=== PATIENT | male | born 1960 | race Caucasian/White ===

== ENCOUNTER 2020-07-31 14:43 | Emergency (ER) | payer OTHER ==
[2020-07-31] MEDS ORDERED: cefTRIAXone 2 GM in Sodium Chloride 0.9% 100 ML IV ONE (15:13)
[2020-07-31] MEDS ORDERED: Sodium Chloride 0.9% 10 ML Syringe FLUSH PRN (15:13)
[2020-07-31] MEDS ORDERED: Diphtheria,Pertussis(Acell),Tetanus Vaccine 0.5 ML Syringe IM ONE (15:14)
[2020-07-31] MEDS ORDERED: Ondansetron 4 MG/2 ML SDV IVPUSH ONE (15:14)
--- NOTE | 2020-07-31 15:20 | EDM.PDOC ---
ED HPI GENERAL MEDICAL PROBLEM - General Chief Complaint: Upper Extremity Injury/Pain Stated Complaint: HAND AND FINGER INJURY SHOWING INFECTION Time Seen by Provider: 07/31/20 14:57 Source of Information: Reports: Patient, RN Notes Reviewed History Limitations: Reports: No Limitations - History of Present Illness INITIAL COMMENTS - FREE TEXT/NARRATIVE: Patient is a 59-year-old male who presents to the ED for evaluation of a right hand injury. The patient was at work yesterday, at around 11 AM, when he was pulling wire at work, when his hand slipped and his right hand ended up getting punctured by some ground wire. He states that he felt an electric shock type pain initially at the site of the wound, and he pulled out the wire, and he had another shock type pain after this. He is noting some numbness and tingling to his index finger on his right hand, mostly on the radial side. He notes he has some sensation to the ulnar side of his index finger. There is associated redness and swelling, almost to the surface of the second MCP of the right hand. The erythema seems to extend down the patient's hand by his thumb, about 1 inch past his wrist joint, and then seems to stop. The puncture wound is in the web spacing between the first and second digits. He went to occupational health as this was a work-related injury, and they sent him here for x-rays and further evaluation and possible IV antibiotics. He notes that there is increased pain, swelling, and loss of range of movement due to the swelling. Patient denies any other sick-like symptoms, fever/chills, cough/shortness of breath, nausea/vomiting/diarrhea. Treatments CART PUSHER: Reports: Other (see below) Other Treatments CART PUSHER: none Right Finger-Index Pain Score (Numeric/FACES): 10 - Related Data Allergies Allergy/AdvReac Type Severity Reaction Status Date / Time amoxicillin AdvReac Mild Nausea Verified 07/31/20 15:59 Home Meds: Home Meds Cefdinir [Omnicef] 300 mg PO BID 7 Days #14 cap 07/31/20 [Rx] Hydrocodone/Acetaminophen [Hydrocodon-Acetaminophen 5-325] 1 each PO Q6H PRN #12 tablet 07/31/20 [Rx] Past Medical History - Past Health History Medical/Surgical History: Denies Medical/Surgical History - Past Surgical History GI Surgical History: Reports: Appendectomy Social & Family History - Tobacco Use Tobacco Use Status *Q: Never Tobacco User - Caffeine Use Caffeine Use: Reports: Coffee - Recreational Drug Use Recreational Drug Use: No Review of Systems - Review of Systems Review Of Systems: Comprehensive ROS is negative, except as noted in HPI. ED EXAM, GENERAL - Physical Exam Exam: See Below Exam Limited By: No Limitations General Appearance: Alert, WD/WN, No Apparent Distress Respiratory/Chest: No Respiratory Distress, Lungs Clear, Normal Breath Sounds, No Accessory Muscle Use, Chest Non-Tender Cardiovascular: Normal Peripheral Pulses, Regular Rate, Rhythm, No Murmur Peripheral Pulses: 2+: Radial (L), Radial (R) Extremities: Normal Capillary Refill, Limited Range of Motion (of 1st and 2nd digits d/t swelling in web spacing.), Increased Warmth, Redness Neurological: Alert, Oriented, Normal Cognition, Sensory/Motor Deficit (there seems to be some loss of sensory perception on the radial aspect of the patient's 2nd digit) Psychiatric: Normal Affect, Normal Mood Skin Exam: Warm, Dry, Erythema (to right hand dorsum, extends 1 inch past wrist and to 2nd MCP at this time.), Increased Warmth (over the area of concern), Wound/Incision (puncture wound to webspacing to right hand on dorsum of hand) Course - Vital Signs Last Recorded V/S: Last Vital Signs Temp 99.3 F 07/31/20 15:04 Pulse 86 07/31/20 15:04 Resp 20 07/31/20 15:04 BP 130/92 H 07/31/20 15:04 Pulse Ox 95 07/31/20 15:04 - Orders/Labs/Meds Orders: Active Orders 24 hr Category Date Time Status Peripheral IV Care [RC] . DIRECTED Care 07/31/20 15:14 Ordered Vaccines to be Administered [RC] PER UNIT ROUTINE Care 07/31/20 15:14 Ordered Hand Comp Min 3V Rt [CR] Stat Exams 07/31/20 15:12 Ordered Sodium Chloride 0.9% [Saline Flush] Med 07/31/20 15:13 Ordered 10 ml FLUSH ASDIRECTED PRN Peripheral IV Insertion Adult [OM.PC] Routine Oth 07/31/20 15:13 Ordered Medication Orders Sodium Chloride (Saline Flush) 10 ml FLUSH ASDIRECTED PRN PRN Reason: Keep Vein Open Meds: Medications Generic Name Dose Route Start Last Admin Trade Name Freq PRN Reason Stop Dose Admin Sodium Chloride 10 ml 07/31/20 15:13 Saline Flush FLUSH ASDIRECTED PRN Keep Vein Open Discontinued Medications Generic Name Dose Route Start Last Admin Trade Name Freq PRN Reason Stop Dose Admin Ceftriaxone Sodium 2 gm/ 0 gm 07/31/20 15:52 Lidocaine HCl 4.2 ml IM 07/31/20 15:53 ONETIME ONE Diphtheria/Tetanus/Acell Pertussis 0.5 ml 07/31/20 15:14 07/31/20 16:04 Adacel IM 07/31/20 15:15 0.5 ml .ONCE ONE Administration Ceftriaxone Sodium 2 gm/ 100 mls @ 200 mls/hr 07/31/20 15:13 07/31/20 15:54 Sodium Chloride IV 07/31/20 15:42 Not Given ONETIME ONE Ondansetron HCl 4 mg 07/31/20 15:14 07/31/20 15:56 Zofran IVPUSH 07/31/20 15:15 Not Given ONETIME ONE Ondansetron HCl 4 mg 07/31/20 15:55 07/31/20 16:04 Zofran Odt PO 07/31/20 15:56 4 mg ONETIME ONE Administration - Re-Assessments/Exams Free Text/Narrative Re-Assessment/Exam: 07/31/20 15:20 Patient presents to the ED for evaluation of his hand injury. Have ordered x- rays, IV to be placed along with 2 g IV Rocephin for initial management. He will be updated on his tetanus at this time. 07/31/20 15:44 The patient's case was discussed with Dr. Vegas, orthopedic surgeon at [facility] in [place], he states that he does come out to [facility] on Monday, and to have the patient call [facility] and [facility] to schedule an appointment to see him on Monday. He is okay with getting Omnicef for coverage, and to give him something for pain management as well. Departure - Departure Time of Disposition: 15:48 Disposition: Home, Self-Care 01 Condition: Good Clinical Impression: Puncture wound of hand, right Qualifiers: Encounter type: initial encounter Foreign body presence: with foreign body Qualified Code(s): S61.441A - Puncture wound with foreign body of right hand, initial encounter - Discharge Information *PRESCRIPTION DRUG MONITORING PROGRAM REVIEWED*: No *COPY OF PRESCRIPTION DRUG MONITORING REPORT IN PATIENT RICKY: No Prescriptions: Hydrocodone/Acetaminophen [Hydrocodon-Acetaminophen 5-325] 1 each PO Q6H PRN #12 tablet PRN Reason: Pain Cefdinir [Omnicef] 300 mg PO BID 7 Days #14 cap Instructions: Puncture Wound, [id number] Referrals: Sheldon Pham MD [Primary Care Provider] - Forms: ED Department Discharge Additional Instructions: You have been evaluated in the ED for your right hand puncture wound. Your x-ray demonstrated did demonstrate some retained foreign bodies that will need to be removed. The foreign bodies do appear to look like the plastic wire coverings. Please use ice as tolerated to the affected area. You may elevate the affected area to provide further relief from swelling. You may take Tylenol 500 mg or ibuprofen 600mg q6 hrs for pain relief. Please do so until you have a tolerable level of pain with activity. Do not exceed 4000mg Tylenol, Do not exceed 3200mg ibuprofen in a 24 hour time period. You were given a prescription for a strong pain medication, hydrocodone/acetaminophen 5/325, please take 1 tab every 6 hours as needed for pain not relieved by Tylenol or ibuprofen alone. Please note this does contain Tylenol in it, so do not take more than 4000 mg in a 24-hour time span. These medications can be addictive, so please take as few as possible to achieve adequate pain control. These meds can also be quite constipating, recommend that you increase your oral fluid intake and take a stool softener like MiraLAX while taking these medications. You were scheduled with an orthopedic hand surgeon in the [facility], Dr. Vegas will see you at 9 AM at our clinic on Monday, August 03, 2020. Please show up 15 to 20 minutes prior to your scheduled appointment time, so you may register and get appropriate paperwork filled out. This appointment is for further evaluation, and to talk about getting the foreign body removed. Please return to ED if your symptoms should change or worsen. Sepsis Event Note (ED) - Evaluation Sepsis Screening Result: No Definite Risk - Focused Exam Vital Signs: Vital Signs Temp Pulse Resp BP Pulse Ox 07/31/20 15:04 99.3 F 86 20 130/92 H 95 - My Orders Last 24 Hours: My Active Orders 07/31/20 15:12 Hand Comp Min 3V Rt [CR] Stat 07/31/20 15:13 Sodium Chloride 0.9% [Saline Flush] 10 ml FLUSH ASDIRECTED PRN Peripheral IV Insertion Adult [OM.PC] Routine 07/31/20 15:14 Peripheral IV Care [RC] . DIRECTED Vaccines to be Administered [RC] PER UNIT ROUTINE - Assessment/Plan Last 24 Hours: My Active Orders 07/31/20 15:12 Hand Comp Min 3V Rt [CR] Stat 07/31/20 15:13 Sodium Chloride 0.9% [Saline Flush] 10 ml FLUSH ASDIRECTED PRN Peripheral IV Insertion Adult [OM.PC] Routine 07/31/20 15:14 Peripheral IV Care [RC] . DIRECTED Vaccines to be Administered [RC] PER UNIT ROUTINE
[2020-07-31] MEDS ORDERED: cefTRIAXone 2 GM, Lidocaine 1% 4.2 ML IM ONE ×2 (15:52)
[2020-07-31] MEDS ORDERED: Ondansetron 4 MG Tab.DIS PO ONE (15:55)
--- NOTE | 2020-08-03 09:06 | CR ---
PROCEDURE INFORMATION: Exam: XR Right Hand Exam date and time: 07/31/2020 3:18 PM Age: 59 years old Clinical indication: Injury or trauma; Other: Puncture with wire yesterday; Hand; Right; Injury date: 07.30.20 TECHNIQUE: Imaging protocol: XR Right hand. Views: 3 or more views. COMPARISON: No relevant prior studies available. FINDINGS: Bones/joints: Radiopaque densities noted within the soft tissues overlying the 3rd metacarpophalangeal joint. Degenerative changes of the hand present. There is no evidence of acute fracture. There is no evidence of joint malalignment or dislocation. Soft tissues: Dorsal soft tissue swelling. IMPRESSION: 1. Radiopaque densities noted within the soft tissues overlying the 3rd metacarpophalangeal joint. 2. Degenerative changes of the hand present. 3. No evidence of acute fracture. 4. No evidence of acute dislocation. 5. Dorsal soft tissue swelling. Thank you for allowing us to participate in the care of your patient. Dictated and Authenticated by: Alden Conway DO 07/31/2020 4:30 PM Central Time ([place] & [place]) ARNALDO
== END 2020-07-31 16:39 | disposition home or self-care (01) ==
LOC: JD.ED 14:43
DX: S61.441A Puncture wound with foreign body of right hand, initial encounter (principal); Z23 Encounter for immunization; W26.8XXA Contact with other sharp object(s), not elsewhere classified, initial encounter; Y92.89 Other specified places as the place of occurrence of the external cause; Y99.0 Civilian activity done for income or pay
CPT/HCPCS: 73130; 90471; 90715; 96372; 99283; A9270; J0696; J2001; 99284